=== PATIENT | female | born 1960 | race Caucasian/White ===

== ENCOUNTER 2017-12-03 14:45 | Day surgery (SDC) | payer OTHER ==
[2017-12-03] MEDS ORDERED: MIDAZOLAM 1 MG/ML 2 ML INJ (16:43)
[2017-12-03] MEDS ORDERED: ONDANSETRON 4 MG INJ (16:43)
[2017-12-03] MEDS ORDERED: PROPOFOL 20 ML ×2 (16:43→17:07)
[2017-12-03] MEDS ORDERED: KETOROLAC 30 MG INJ (16:44)
[2017-12-03] MEDS ORDERED: METOCLOPRAMIDE 10 MG INJ (16:44)
[2017-12-03] MEDS ORDERED: CEFAZOLIN 1 GM INJ (16:45)
[2017-12-03] MEDS ORDERED: FENTAnyl 50 MCG/ML VIAL (16:55)
[2017-12-03] MEDS ORDERED: HYDROmorphONE 2 MG/ML SYG (17:07)
[2017-12-03] MEDS: BUPIVACAINE 0.5% (SDV) 30 ML INJ (17:17)
[2017-12-03] MEDS ORDERED: EPHEDrine SULFATE 50 MG/5 ML SYG (17:23)
[2017-12-03] MEDS ORDERED: HYDROmorphONE (0.2 MG/ML) 10ML SYG IV (18:30)
[2017-12-03] MEDS: ONDANSETRON 4 MG INJ IV (18:55)
== END 2017-12-03 19:00 | disposition home or self-care (01) ==
LOC: SDS 14:45
DX: M65.4 Radial styloid tenosynovitis [de Quervain] (principal); S63.592D Other specified sprain of left wrist, subsequent encounter; X58.XXXD Exposure to other specified factors, subsequent encounter; E03.9 Hypothyroidism, unspecified
CPT/HCPCS: 25000; 71045

== ENCOUNTER 2018-08-20 09:54 | Day surgery (SDC) | payer OTHER ==
[~2018-08-20 09:54] MED LIST: LACTATED RINGER'S 1,000 ML IV*; [UNRECOGNIZED DRUG - REMARK] XX
[2018-08-20] MEDS ORDERED: HYDROmorphONE 1 MG/5 ML IV SYRINGE IV ×2 (15:00)
[2018-08-20] MEDS ORDERED: METOCLOPRAMIDE 10 MG INJ IV (15:00)
[2018-08-20] MEDS ORDERED: ONDANSETRON 4 MG INJ IV (15:00)
[2018-08-20] MEDS ORDERED: FENTAnyl 50 MCG/ML VIAL IV ×3 (15:00)
[2018-08-20] MEDS ORDERED: ROPIVACAINE 0.5 % 30 ML VIAL (15:02)
[2018-08-20] MEDS ORDERED: MIDAZOLAM 1 MG/ML 2 ML INJ (15:02)
[2018-08-20] MEDS ORDERED: FENTAnyl 50 MCG/ML VIAL (15:02)
[2018-08-20] MEDS: POLYMYXIN/BACITRACIN 1L IRRIG IRR (15:09)
[2018-08-20] MEDS ORDERED: POLYMYXIN/BACITRACIN 1L IRRIG (15:10)
[2018-08-20] MEDS ORDERED: CLINDAMYCIN 900 MG/D5W (PMX) 50 ML IVPB (15:20)
[2018-08-20] MEDS ORDERED: LIDOCAINE 100 MG SYRINGE (15:20)
[2018-08-20] MEDS ORDERED: ROCURONIUM 50 MG INJ (15:20)
[2018-08-20] MEDS ORDERED: ONDANSETRON 4 MG INJ (15:20)
[2018-08-20] MEDS ORDERED: SUCCINYLCHOLINE CHLORIDE 100 MG/5 ML SYG IV (15:20)
[2018-08-20] MEDS ORDERED: PROPOFOL 20 ML (15:20)
[2018-08-20] MEDS ORDERED: METOCLOPRAMIDE 10 MG INJ (15:20)
[2018-08-20] MEDS ORDERED: SUGAMMADEX SODIUM 200 MG/2 ML VIAL IV (15:20)
[2018-08-20] MEDS ORDERED: DEXAMETHASONE 4 MG/ML 1 ML INJ (15:20)
[2018-08-20] MEDS ORDERED: PHENYLephrine (100 MCG/ML) 5ML SYG (15:37)
== END 2018-08-20 18:02 | disposition home or self-care (01) ==
LOC: SDS 09:54
DX: M67.432 Ganglion, left wrist (principal); M24.832 Other specific joint derangements of left wrist, not elsewhere classified; M65.4 Radial styloid tenosynovitis [de Quervain]
CPT/HCPCS: 25111; 73110-LT